=== PATIENT | female | born 1995 | race American Indian/Alaskan Native ===

== ENCOUNTER 2018-02-25 18:44 | Emergency (ER) | payer SELFPAY ==
[2018-02-25 18:45] VITALS: BMI 24.2
[2018-02-25 18:54] VITALS: RESP 20; TEMP 98.9
[2018-02-25] MEDS ORDERED: Sodium Chloride 0.9% 1,000 ML IV ONE (19:12)
--- NOTE | 2018-02-25 19:12 | C.PDOC ---
History Of Present Illness Patient presents to the ER with a complaint of abdominal distention and diffuse cramping pain since yesterday. Denies fever, chills, nausea, or vomiting. Time Seen by Provider: 02/25/18 19:12 Chief Complaint (Nursing): Abdominal Pain History Per: Patient History/Exam Limitations: no limitations Onset/Duration Of Symptoms: Days Current Symptoms Are (Timing): Still Present Severity: Moderate Pain Scale Rating Of: 4 Location Of Pain/Discomfort: Diffuse Radiation Of Pain To:: None Quality Of Discomfort: Cramping Associated Symptoms: denies: Fever, Chills, Nausea, Vomiting Exacerbating Factors: None Alleviating Factors: None Recent travel outside of the [place]: No Abnormal Vaginal Bleeding: No Past Medical History Reviewed: Historical Data, Nursing Documentation, Vital Signs Vital Signs: Last Vital Signs Temp 98.9 F 02/25/18 18:51 Pulse 78 02/25/18 18:51 Resp 20 02/25/18 18:51 BP 117/70 02/25/18 18:51 Pulse Ox 100 02/25/18 19:51 - Medical History PMH: Migraine Family History: States: No Known Family Hx - Social History Hx Alcohol Use: Yes Hx Substance Use: No - Immunization History Hx Tetanus Toxoid Vaccination: No Hx Influenza Vaccination: No Hx Pneumococcal Vaccination: No Review Of Systems Constitutional: Negative for: Fever, Chills Respiratory: Negative for: Cough Gastrointestinal: Positive for: Abdominal Pain, Other (Abdominal distention). Negative for: Nausea, Vomiting Physical Exam - Physical Exam Appears: Non-toxic Skin: Warm, Dry Head: Normacephalic Oral Mucosa: Moist Chest: Symmetrical, No Tenderness Cardiovascular: Rhythm Regular Respiratory: No Rales, No Rhonchi, No Wheezing Gastrointestinal/Abdominal: Soft, No Tenderness, Distention, No Guarding, No Rebound, Other (Tympanic to percussion) Neurological/Psych: Oriented x3 ED Course And Treatment - Laboratory Results Result Diagrams: 02/25/18 19:37 02/25/18 19:37 O2 Sat by Pulse Oximetry: 100 (room air) Pulse Ox Interpretation: Normal Progress Note: Blood work and urinalysis ordered. Pepcid and IV fluids administered. Reevaluation Time: 22:57 Reassessment Condition: Improved Medical Decision Making Medical Decision Making: Upon provider reevaluation patient is feeling better, is medically stable, and requires no further treatment in the ED at this time. Patient will be discharged home. Counseling was provided and all questions were answered regarding diagnosis and need for follow up with dr jones. There is agreement to discharge plan. Return if symptoms persist or worsen. Disposition Counseled Patient/Family Regarding: Studies Performed, Diagnosis, Need For Followup - Disposition Referrals: Gordon Jones MD [Staff Provider] - Disposition: HOME/ ROUTINE Disposition Time: 19:12 Condition: FAIR Additional Instructions: Please return if symptoms recur. Instructions: Ovarian Cyst (DC) Forms: [employer] (Sinhala) - Clinical Impression Clinical Impression: Abdominal pain, Ovarian cyst - Scribe Statement The provider has reviewed the documentation as recorded by the Scribe Joey Castillo All medical record entries made by the Scribe were at my direction and personally dictated by me. I have reviewed the chart and agree that the record accurately reflects my personal performance of the history, physical exam, medical decision making, and the department course for this patient. I have also personally directed, reviewed, and agree with the discharge instructions and disposition.
[2018-02-25 19:43] LABS: BASO # 0.1 K/uL (0.0-0.2); EOS # 0.5 K/uL (0.0-0.7); EOS % 5.6 % (0.0-4.0); HEMOGLOBIN 12.2 g/dL (11.0-16.0); LYMPH # 2.8 K/uL (1.0-4.3); LYMPH % 33.8 % (20.0-40.0); MEAN CELL VOLUME 86.5 fL (81.0-99.0); MEAN CORPUSCULAR HEMOGLOBIN 29.2 pg (27.0-31.0); MEAN CORPUSCULAR HGB CONC 33.7 g/dL (33.0-37.0); MEAN PLATELET VOLUME 9.6 fL (7.2-11.7); MONO # 0.7 K/uL (0.0-0.8); MONO % 8.2 % (0.0-10.0); NEUT # 4.3 K/uL (1.8-7.0); NEUT % 51.4 % (50.0-75.0); RBC 4.2 Mil/uL (3.80-5.20); RED CELL DISTRIBUTION WIDTH 13.9 % (11.5-14.5); WHITE BLOOD COUNT 8.4 K/uL (4.8-10.8)
[2018-02-25 19:47] LABS: HCG,QUALITATIVE URINE NEGATIVE (NEGATIVE); SQUAMOUS EPITHIAL 6 /hpf (0-5); URINE BACTERIA RARE (<OCC); URINE BILIRUBIN NEGATIVE (NEGATIVE); URINE BLOOD NEGATIVE (NEGATIVE); URINE CLARITY Hazy (Clear); URINE COLOR Amber (YELLOW); URINE GLUCOSE (UA) NORMAL (Normal); URINE LEUKOCYTE ESTERASE NEG Leu/uL (Negative); URINE PROTEIN NEGATIVE (NEGATIVE)
[2018-02-25 19:56] LABS: ALB/GLOB RATIO 1.3 (1.0-2.1); ALBUMIN 3.9 g/dL (3.5-5.0); ALT/SGPT 14 U/L (9-52); AST/SGOT 14 U/L (14-36); BLOOD UREA NITROGEN 15 mg/dL (7-17); CALCIUM 8.9 mg/dl (8.6-10.4); GFR AFRICAN-AMERICAN > 60; GFR NON-AFRICAN AMERICAN > 60; LIPASE 94 U/L (23-300)
[2018-02-25] MEDS ORDERED: Sodium Chloride 0.9% 1,000 ML ONE (19:56)
[2018-02-25] MEDS ORDERED: Iodixanol 320 MG/ML 100 ML BOTTLE IV ONE (20:33)
--- NOTE | 2018-02-25 22:45 | CT ---
EXAM: CT Abdomen and Pelvis With Intravenous Contrast EXAM DATE/TIME: 02/25/2018 7:49 PM CLINICAL HISTORY: 22 years old, female; Pain and signs and symptoms; Bloating; Abdominal pain; Generalized; Additional info: Abdominla pain and distension TECHNIQUE: Axial computed tomography images of the abdomen and pelvis with intravenous contrast. All CT scans at this facility use one or more dose reduction techniques, viz.: automated exposure control; ma/kV adjustment per patient size (including targeted exams where dose is matched to indication; i.e. head); or iterative reconstruction technique. Coronal and sagittal reformatted images were created and reviewed. CONTRAST: 100 mL of visipaque 320 administered intravenously. COMPARISON: No relevant prior studies available. FINDINGS: LUNG BASES: No significant abnormality seen. ABDOMEN: LIVER: No acute abnormality of the liver identified. GALLBLADDER AND BILE DUCTS: No CT evidence of acute cholecystitis. No evidence of significant biliary ductal dilatation. PANCREAS: No CT evidence of acute pancreatitis. SPLEEN: No acute abnormality of the spleen identified. ADRENALS: No acute abnormality of the adrenal glands identified. KIDNEYS AND URETERS: No acute abnormality of the kidneys identified. STOMACH AND BOWEL: No acute abnormality of the stomach, small bowel or colon identified. No evidence of bowel obstruction. PELVIS: APPENDIX: Appendix is seen, and is within normal limits in appearance. BLADDER: No acute abnormality of the bladder identified. REPRODUCTIVE: Multiple prominent vessels in the adnexal regions bilaterally. This is a a nonspecific finding, but can be seen with pelvic congestion syndrome. Recommend clinical correlation. Small 1.4 cm lesion with a thin, enhancing and collapsed soft tissue rim in the right ovary. This has an appearance suggestive of a recently ruptured/involuting ovarian cyst, such as a corpus luteal cyst. Followup pelvic ultrasound as clinically indicated. No evidence of large left adnexal cystic masses. No acute abnormality of the uterus identified. ABDOMEN and PELVIS: INTRAPERITONEAL SPACE: Small amount of free fluid in the pelvis. This is most likely physiologic in nature. No evidence of free air. BONES/JOINTS: No acute fractures or other acute bony abnormality noted. SOFT TISSUES: No acute abnormality of the visualized soft tissues is seen. VASCULATURE: No evidence of aortic dissection. LYMPH NODES: No evidence of diffuse lymphadenopathy. IMPRESSION: - No evidence of significant acute process. - Small amount of pelvic free fluid, most likely physiologic in nature. - See above for remaining findings.
[2018-02-25 23:25] VITALS: BP 120/65; PULSE 76; O2SAT 99
== END 2018-02-25 23:25 | disposition home or self-care (01) ==
LOC: C.ER 18:44
DX: N83.201 Unspecified ovarian cyst, right side (principal); R10.9 Unspecified abdominal pain
CPT/HCPCS: 74177; 80053; 81001; 83690; 84702; 84703; 85025; 96360; 99284; J7040; Q9967